=== PATIENT | male | born 1995 | race Caucasian/White ===

== ENCOUNTER 2021-07-12 20:57 | Emergency (ER) | payer BC ==
[2021-07-12 21:31] VITALS: TEMP 97
[2021-07-12] MEDS ORDERED: LABETALOL 5 MG/ML VIAL MDV IVP STA (22:21)
[2021-07-12] MEDS ORDERED: PROPRANOLOL 10 MG TAB PO STA (23:28)
[2021-07-12 23:38] VITALS: RESP 18
--- NOTE | 2021-07-12 23:38 | XR ---
EXAMINATION TYPE: XR chest 2V DATE OF EXAM: 07/12/2021 COMPARISON: NONE HISTORY: Chest pain and tachycardia TECHNIQUE: 2 views FINDINGS: Heart and mediastinum are normal. Lungs are clear. Diaphragm is normal. Bony thorax appears normal. IMPRESSION: Normal chest
--- NOTE | 2021-07-13 00:10 | ED ---
General Adult HPI - General Chief complaint: Recheck/Abnormal Lab/Rx Stated complaint: High BP Time Seen by Provider: 07/12/21 22:12 Source: patient Mode of arrival: ambulatory Limitations: no limitations - History of Present Illness Initial comments: Patient is a 25-year-old male with past medical history chromosomal abnormalities, hypertension, stage III kidney presenting with chief complaint of medication refill. Patient ran out of his Candesartan 16 mg once daily and Propranolol 10 mg twice a day 3 days ago. 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 He is asymptomatic presentation. His mother states that when he checked his it was 210/115. He denies chest pain, shortness of breath, palpitations, headache, vision changes, abdominal pain, nausea, vomiting, fever, chills, pain in the left arm or left side. - Related Data Home Medications Medication Instructions Recorded Confirmed Candesartan [Atacand] 8 mg PO BID 07/12/21 07/12/21 Propranolol [Inderal] 10 mg PO BID 07/12/21 07/12/21 Previous Rx's Medication Instructions Recorded Candesartan [Atacand] 16 mg PO DAILY #30 tablet 07/13/21 Propranolol HCl 10 mg PO BID #30 tablet 07/13/21 Allergies Allergy/AdvReac Type Severity Reaction Status Date / Time No Known Allergies Allergy Verified 07/12/21 21:31 Review of Systems ROS Statement: Those systems with pertinent positive or pertinent negative responses have been documented in the HPI. ROS Other: All systems not noted in ROS Statement are negative. Past Medical History Past Medical History: Renal Disease Additional Past Medical History / Comment(s): Dilated aorta History of Any Multi-Drug Resistant Organisms: None Reported Past Surgical History: No Surgical Hx Reported Past Psychological History: No Psychological Hx Reported Smoking Status: Never smoker Past Alcohol Use History: None Reported Past Drug Use History: None Reported General Exam Limitations: no limitations Head exam: Present: atraumatic, normocephalic, normal inspection Eye exam: Present: normal appearance, PERRL, EOMI. Absent: scleral icterus, conjunctival injection, periorbital swelling Neck exam: Present: normal inspection Respiratory exam: Present: normal lung sounds bilaterally. Absent: respiratory distress, wheezes, rales, rhonchi, stridor Cardiovascular Exam: Present: regular rate, normal rhythm, normal heart sounds. Absent: systolic murmur, diastolic murmur, rubs, gallop, clicks GI/Abdominal exam: Present: soft. Absent: distended, tenderness, guarding, rebound, rigid Neurological exam: Present: alert, oriented X3, CN II-XII intact Psychiatric exam: Present: normal affect, normal mood Skin exam: Present: warm, dry, intact, normal color. Absent: rash Course Vital Signs 07/12/21 07/12/21 21:28 23:37 Temperature 97 F L Pulse Rate 129 H 94 Respiratory 20 18 Rate Blood Pressure 172/91 156/96 O2 Sat by Pulse 97 97 Oximetry EKG Findings - EKG Results: EKG: interpreted by ERMD EKG shows: tachycardia Medical Decision Making - Medical Decision Making Patient is a 25-year-old male presenting with chief complaint medication refill. He has a past medical history of chromosomal abnormalities, hypertension, stage 2 kidney failure. He is asymptomatic at presentation, his mother states that when she took his blood pressure at home it was 200/115. Patient denies chest pain, shortness of breath, palpitations, headache, vision changes, abdominal pain. He is tachycardic at 129 HR and hypertensive at 172/91. Lungs are clear to auscultation and heart sounds confirm true tachycardia. EKG was remarkable for tachycardia and nonspecific ST changes, troponin, d-dimer was elevated at 1.22. CT with contrast ruled out pulmonary embolism. Patient was given 20 mg IVP and 10 mg propranolol by mouth. Blood pressure came down to 156/96 and heart rate 94. Patient was provided with refills of his candesartan 16 mg 1 time daily and propanolol 10 mg twice a day. Follow-up with primary care, cardiology, nephrology. Report back to ER with worsening symptoms or new onset alarming symptoms, including not limited to chest pain, shortness of breath, palpitations, hemoptysis, syncope. Answered all questions. Patient conveyed verbal understanding and agreed to the plan. My attending is Dr. Dominguez. - Lab Data Result diagrams: 07/13/21 01:22 07/13/21 01:22 Lab Results 07/12/21 07/12/21 07/13/21 Range/Units 23:13 23:13 01:22 WBC 13.7 H (3.8-10.6) k/uL RBC 4.82 (4.30-5.90) m/uL Hgb 15.3 (13.0-17.5) gm/dL Hct 47.0 (39.0-53.0) % MCV 97.5 (80.0-100.0) fL MCH 31.8 (25.0-35.0) pg MCHC 32.6 (31.0-37.0) g/dL RDW 12.4 (11.5-15.5) % Plt Count 291 (150-450) k/uL MPV 6.8 Neutrophils % 89 % Lymphocytes % 7 % Monocytes % 3 % Eosinophils % 0 % Basophils % 0 % Neutrophils # 12.2 H (1.3-7.7) k/uL Lymphocytes # 1.0 (1.0-4.8) k/uL Monocytes # 0.4 (0-1.0) k/uL Eosinophils # 0.1 (0-0.7) k/uL Basophils # 0.0 (0-0.2) k/uL D-Dimer 1.22 H (<0.60) mg/L FEU Sodium (137-145) mmol/L Potassium (3.5-5.1) mmol/L Chloride (98-107) mmol/L Carbon Dioxide (22-30) mmol/L Anion Gap mmol/L BUN (9-20) mg/dL Creatinine (0.66-1.25) mg/dL Est GFR (CKD-EPI)AfAm (>60 ml/min/1.73 sqM) Est GFR (CKD-EPI)NonAf (>60 ml/min/1.73 sqM) Glucose (74-99) mg/dL Calcium (8.4-10.2) mg/dL Total Bilirubin (0.2-1.3) mg/dL AST (17-59) U/L ALT (4-49) U/L Alkaline Phosphatase (38-126) U/L Troponin I 0.024 (0.000-0.034) ng/mL Total Protein (6.3-8.2) g/dL Albumin (3.5-5.0) g/dL 07/13/21 Range/Units 01:22 WBC (3.8-10.6) k/uL RBC (4.30-5.90) m/uL Hgb (13.0-17.5) gm/dL Hct (39.0-53.0) % MCV (80.0-100.0) fL MCH (25.0-35.0) pg MCHC (31.0-37.0) g/dL RDW (11.5-15.5) % Plt Count (150-450) k/uL MPV Neutrophils % % Lymphocytes % % Monocytes % % Eosinophils % % Basophils % % Neutrophils # (1.3-7.7) k/uL Lymphocytes # (1.0-4.8) k/uL Monocytes # (0-1.0) k/uL Eosinophils # (0-0.7) k/uL Basophils # (0-0.2) k/uL D-Dimer (<0.60) mg/L FEU Sodium 136 L (137-145) mmol/L Potassium 4.6 (3.5-5.1) mmol/L Chloride 103 (98-107) mmol/L Carbon Dioxide 24 (22-30) mmol/L Anion Gap 9 mmol/L BUN 14 (9-20) mg/dL Creatinine 0.74 (0.66-1.25) mg/dL Est GFR (CKD-EPI)AfAm >90 (>60 ml/min/1.73 sqM) Est GFR (CKD-EPI)NonAf >90 (>60 ml/min/1.73 sqM) Glucose 116 H (74-99) mg/dL Calcium 9.9 (8.4-10.2) mg/dL Total Bilirubin 0.5 (0.2-1.3) mg/dL AST 29 (17-59) U/L ALT 20 (4-49) U/L Alkaline Phosphatase 93 (38-126) U/L Troponin I (0.000-0.034) ng/mL Total Protein 7.7 (6.3-8.2) g/dL Albumin 4.7 (3.5-5.0) g/dL - EKG Data Rate: tachycardia EKG Comments: Interpreted by Dr. dominguez When compared to previous EKG there are: previous EKG unavailable Interpretation: nonspecific ST-T wave changes - Radiology Data Radiology results: report reviewed Chest x-ray: no acute process CT angio: No pulmonary embolism Disposition Clinical Impression: Encounter for medication refill, Tachycardia, Hypertension Disposition: HOME SELF-CARE Condition: Good Instructions (If sedation given, give patient instructions): Chronic Hypertension (DC), Tachycardia (ED) Additional Instructions: Follow-up with primary care in 1-2 days. Take medications as prescribed. Report back to ER if worsening symptoms or new onset alarming symptoms, including but not limited to chest pain, shortness of breath, palpitations, headache, vision changes. Prescriptions: Candesartan [Atacand] 16 mg PO DAILY #30 tablet Propranolol HCl 10 mg PO BID #30 tablet Is patient prescribed a controlled substance at d/c from ED?: No Referrals: Levon Quarles MD [STAFF PHYSICIAN] - 1-2 days Time of Disposition: 02:57
[2021-07-13] MEDS ORDERED: RX INFO: IV CONTRAST WAS GIVEN 1 EACH MISC MISCELLANE PRN (01:02)
[2021-07-13 01:35] LABS: Basophils % (A) 0 %; Eosinophils # (A) 0.1 k/uL (0-0.7); Eosinophils % (A) 0 %; HGB 15.3 gm/dL (13.0-17.5); Lymphocytes % (A) 7 %; MCH 31.8 pg (25.0-35.0); MCHC 32.6 g/dL (31.0-37.0); MCV 97.5 fL (80.0-100.0); Mean Platelet Volume 6.8; Monocytes # (A) 0.4 k/uL (0-1.0); Monocytes % (A) 3 %; Neutrophils # (A) 12.2 k/uL (1.3-7.7); Neutrophils % (A) 89 %; Platelet Count 291 k/uL (150-450); RBC 4.82 m/uL (4.30-5.90); RDW 12.4 % (11.5-15.5); WBC 13.7 k/uL (3.8-10.6)
[2021-07-13 01:43] LABS: ALT 20 U/L (4-49); AST 29 U/L (17-59); African American GFR (CKD) >90 (>60 ml/min/1.73 sqM); Albumin 4.7 g/dL (3.5-5.0); Alkaline Phosphatase 93 U/L (38-126); Anion Gap 9 mmol/L; Blood Urea Nitrogen 14 mg/dL (9-20); Calcium 9.9 mg/dL (8.4-10.2); Carbon Dioxide 24 mmol/L (22-30); Chloride 103 mmol/L (98-107); Glucose 116 mg/dL (74-99); Non-African American GFR(CKD) >90 (>60 ml/min/1.73 sqM); Potassium 4.6 mmol/L (3.5-5.1); Sodium 136 mmol/L (137-145); Total Bilirubin 0.5 mg/dL (0.2-1.3); Total Protein 7.7 g/dL (6.3-8.2)
[2021-07-13] MEDS ORDERED: SODIUM CHLORIDE 0.9% 1,000 ML IV ONE (01:57)
--- NOTE | 2021-07-13 02:49 | CT ---
EXAMINATION TYPE: CT angio chest DATE OF EXAM: 07/13/2021 COMPARISON: None HISTORY: pe CT DLP: 169.8 mGycm Automated exposure control for dose reduction was used. CONTRAST: Performed with IV Contrast, patient injected with 60 mL of Isovue 370. Images obtained from the thoracic inlet to the diaphragm with IV contrast. There are 3-D post process ed images. The lungs are clear of infiltrate. There is no pleural effusion. No pneumothorax. There is no mediastinal adenopathy. There are no hilar masses. Thoracic aorta is intact. There is no aneurysm or dissection. The ascending aorta measures 2.7 cm. There is normal contrast opacification of the pulmonary arteries. There are no filling defects. Upper abdominal soft tissues show large right renal pelvis. Thoracic spine is intact. Sternum is intact. IMPRESSION: No evidence of pulmonary embolism. Normal heart. Large right renal pelvis could relate to right-sided renal obstruction.
[2021-07-13 03:14] VITALS: BP 171/104; PULSE 80
== END 2021-07-13 03:14 | disposition home or self-care (01) ==
LOC: EC 20:57
DX: I10 Essential (primary) hypertension (principal); Z76.0 Encounter for issue of repeat prescription
CPT/HCPCS: 36415 ×2; 93005; 85379; 80053; 84484; 85025; 71046; 71275; 99284; 96374; 96361; Q9967